=== PATIENT | female | born 1975 | race American Indian/Alaskan Native ===

== ENCOUNTER 2017-09-10 13:14 | Outpatient (CLI) | payer OTHER ==
[2017-09-10 13:45] VITALS: BP 114/68
--- NOTE | 2017-09-10 16:45 | Ultrasound Report ---
FINAL REPORT EXAM: US OB BPP WO NON-STRESS HISTORY: BPP TECHNIQUE: Ultrasound examination of the gravid uterus for biophysical profile evaluation of the fetus PRIORS: None. FINDINGS: There is a single viable intrauterine with documented cardiac activity. The amniotic fluid volume is normal. heart rate: 123 bpm Amniotic fluid: Single pocket with 6.5 cm vertical axis position: Cephalic Evaluation for biophysical profile yields the following score as reported by technologist from real-time exam: respiratory motion (minimum one episode): 2 Gross body movement (minimum 3 movements): 2 tone (minimum one flexion and extension): 2 Amniotic fluid volume (at least 2 cm pocket in vertical diameter): 2 IMPRESSION: Single viable intrauterine with 8/8 biophysical profile score during the sonographic evaluation
--- NOTE | 2017-09-10 16:47 | Ultrasound Report ---
FINAL REPORT EXAM: US OB LIMITED HISTORY: BARBI , reported gestational age 37 weeks 6 days TECHNIQUE: Ultrasound evaluation of the gravid uterus PRIORS: Biophysical profile 09/10/2017 FINDINGS: There is a single viable intrauterine with documented cardiac activity. The quantity of visualized amniotic fluid appears grossly normal. Heart rate: 131 beats per minute position: Cephalic Amniotic fluid index: 20.0cm IMPRESSION: Normal amniotic fluid index at 20.0 cm
== END 2017-09-10 15:40 | disposition home or self-care (01) ==
LOC: TRG 13:14
PROVIDERS: ATTEND Obstetrics & Gynecology
DX: O09.523 Supervision of elderly multigravida, third trimester (principal); O47.1 False labor at or after 37 completed weeks of gestation; Z3A.37 37 weeks gestation of pregnancy
CPT/HCPCS: 59025; 76815; 76819

== ENCOUNTER 2017-09-16 13:50 | Inpatient (IN) | payer OTHER ==
[2017-09-16] MEDS ORDERED: LACTATED RINGERS 1,000 ML ONE (16:48)
[2017-09-16] MEDS ORDERED: BRETHINE IVP PRN (17:15)
[2017-09-16] MEDS ORDERED: POLYCILLIN/NS 2 GM/100 ML 2 GM/100 ML BAG IV ONE (17:15)
[2017-09-16] MEDS ORDERED: ePHEDrine SULFATE IV PRN (17:15)
[2017-09-16] MEDS ORDERED: BRETHINE SUB-Q PRN (17:15)
[2017-09-16] MEDS ORDERED: PHENERGAN PO PRN (17:15)
[2017-09-16] MEDS ORDERED: XYLOCAINE 2% INFILTRATI ONE (17:15)
[2017-09-16] MEDS ORDERED: MINERAL OIL PO PRN (17:15)
[2017-09-16] MEDS ORDERED: STADOL IV PRN (17:15)
--- NOTE | 2017-09-16 17:15 | History and Physical Report ---
History of Present Illness Date of examination: 09/16/17 Date of admission: 09/16/17 16:35 History of present illness: Patient presented to labor and delivery with complaints of regular contractions. Initial exam in triage revealed the patient will 4 cm dilated been admitted for active labor Menstrual History Regularity: regular Menses every: 26-28 days Duration: 3 LMP: 12/19/2016 LMP reliability: month known LMP character: normal test type: urine test BC at conception: none Planned ? no EDC Calculations LMP: 09/25/2017 EDC Confirmation: 09/25/2017 Past History : 5 Term Births: 2 Living Children: 2 Para: 2 Aborta: 2 Elect. Ab: 2 # 1 Delivery type: EAB # 2 Delivery type: EAB # 3 Delivery date: 09/25/2004 Weeks Gestation: 40 labor: no Delivery type: Anesthesia type: epidural [facility] Inf[facility] Sex: Female weight: 6-4 # 4 Delivery date: 08/07/2014 Weeks Gestation: 40 labor: no Delivery type: Delivery location: [place] Sex: Female weight: 7-9 Past Medical History: Negative Past Medical History Past Surgical History: D&C x2 Past Medical History Anesthesia Complications: negative Anemia: negative Autoimmune Disorder: negative Bleeding Disorder: negative Blood Transfusions: negative Breast Disease: negative Diabetes: negative Heart Disease: negative Hypertension: negative Hepatitis/Liver Disease: negative Kidney Disease/UTI: negative Neurologic/Epilepsy/Migraines: negative Phlebitis/Varicosities: negative Psychiatric: negative Pulmonary Disease/Asthma: negative Thyroid Disease: negative Hospitalizations: negative 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 of genital herpes: no Partner hx. of genital herpes: no Varicella/Chicken Pox Status: Immunized TB Risk: no Genetic History ADVANCED MATERNAL AGE Congenital Heart Defect: Mom: no Dad: no Arben Disease: Mom: no Dad: no Thalassemia Mom: no Dad: no Neural Tube Defect Mom: no Dad: no Down's Syndrome Mom: no Dad: no Filipe-Sachs Mom: no Dad: no Sickle Cell Disease/Trait Mom: no Dad: no Hemophilia Mom: no Dad: no Muscular Dystrophy Mom: no Dad: no Cystic Fibrosis Mom: no Dad: no [place] Chorea Mom: no Dad: no Mental Retardation Mom: no Dad: no Fragile X Mom: no Dad: no Other Genetic/Chromosomal Disorder Mom: no Dad: no Child w/other defect Mom: no Dad: no Enviromental Exposures Xray Exposure: no Medication, drug, or alcohol use since LMP: no Chemical/Other Exposure: no Exposure to Cat Liter: no Current Allergies (reviewed today): No known allergies Past History Past Medical History: other (See HPI) Past Surgical History: other (See HPI) 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) Family/Genetic History: other (See HPI) Social history: other (See HPI) - Obstetrical History Expected Date of Delivery: 09/25/17 Actual Gestation: 38 Week(s) 6 Day(s) : 5 Para: 2 Hx # Term Pregnancies: 2 Number of Pregnancies: 0 Spontaneous Abortions: 0 Induced : 2 Number of Living Children: 2 Medications and Allergies Allergies Allergy/AdvReac Type Severity Reaction Status Date / Time No Known Allergies Allergy Unverified 09/10/17 13:51 - Vital Signs Vital signs: Vital Signs Pulse Pulse Ox 84 100 09/16/17 15:08 09/16/17 15:08 Temp Pulse Resp BP Pulse Ox 98.3 F 84 18 126/70 100 09/16/17 15:31 09/16/17 17:10 09/16/17 15:31 09/16/17 16:42 09/16/17 17:10 Results Result Diagrams: 09/16/17 20:00 All other labs normal. Assessment and Plan - Patient Problems (1) Advanced maternal age (AMA), 40 years or greater Current Visit: Yes Status: Acute (2) Active labor at term Current Visit: Yes Status: Acute Plan to address problem: Admit and follow routine labor protocol (3) Group B streptococcal carriage complicating Current Visit: Yes Status: Acute Plan to address problem: Will give prophylactic antibiotics
[2017-09-16] MEDS ORDERED: PITOCin/NS 20 UNIT/1000ML DRIP 20 UNITS/1,000 ML BAG IV SCH (18:00)
[2017-09-16 18:02] LABS: Hematocrit 31.6 % (30.3-42.9); Hemoglobin 10.6 gm/dl (10.1-14.3); Mean Corpuscular HGB Conc 34 % (30-34); Mean Corpuscular Hemoglobin 29 pg (28-32); Mean Corpuscular Volume 87 fl (79-97); Platelet Count 256 K/mm3 (140-440); Red Blood Count 3.64 M/mm3 (3.65-5.03); Red Cell Distribution Width 15.1 % (13.2-15.2)
[2017-09-16] MEDS: LACTATED RINGERS 1,000 ML IV SCH ×2 (18:41→23:30)
[2017-09-16 20:24] LABS: Hematocrit 30.3 % (30.3-42.9); Hemoglobin 9.9 gm/dl (10.1-14.3)
[2017-09-16] MEDS ORDERED: PITOCin/NS 30 UNIT/500ML 30,000 MILLIUNITS/500 ML BAG IV ONE ×2 (23:12→23:31)
--- NOTE | 2017-09-16 23:34 | Event Note ---
Date: 09/16/17 Patient labor progressed slowly cervix now 7 cm. Patient was only 6 cm approximately 3 hours ago at that point had a conversation with start Pitocin patient at that time declined had discussion with the risks of infection especially in the presence of a group B streptococcus patient has agreed to allow me to stop the Pitocin augmented.
--- NOTE | 2017-09-17 01:07 | Procedure Note ---
OB Delivery Note - Delivery Date of Delivery: 09/17/17 Surgeon: BETZY NETTLES Estimated blood loss: 300cc - Vaginal Delivery position: OA Delivery augmentation: rupture of membranes, pitocin Delivery monitor: external FHT, external uterine, internal FHT, internal uterine Route of delivery: Delivery placenta: spontaneous Episiotomy: none Delivery laceration: none Anesthesia: intravenous - A at 1 minute: 8 at 5 minutes: 9
[2017-09-17] MEDS ORDERED: PHENERGAN PO PRN (03:19)
[2017-09-17] MEDS ORDERED: TYLENOL PO PRN (03:19)
[2017-09-17] MEDS ORDERED: SODIUM CHLORIDE FLUSH SYRINGE 10 ML IV NR (03:19)
[2017-09-17] MEDS ORDERED: TUCKS PAD TP PRN (03:19)
[2017-09-17] MEDS ORDERED: NORCO 5/325 PO PRN (03:19)
[2017-09-17] MEDS ORDERED: BENADRYL PO PRN (03:19)
[2017-09-17] MEDS ORDERED: DULCOLAX PR PRN (03:19)
[2017-09-17] MEDS: MOTRIN PO SCH ×4 (04:09→23:22)
--- NOTE | 2017-09-17 08:50 | Event Note ---
Date: 09/17/17 patient resting <8hr post vaginal delivery. no complaints, resting while rests. Lochia scant. Continue pathway.
[2017-09-17] MEDS ORDERED: PRENATAL VITAMIN PO SCH (10:00)
[2017-09-17 14:16] LABS: Hematocrit 29.2 % (30.3-42.9); Hemoglobin 9.6 gm/dl (10.1-14.3)
[2017-09-18] MEDS: MOTRIN PO SCH (05:11)
[2017-09-18] MEDS ORDERED: BOOSTRIX IM ONE (06:00)
--- NOTE | 2017-09-18 09:34 | Progress Note ---
Assessment and Plan - Patient Problems (1) Normal delivery at term Current Visit: Yes Status: Acute Plan to address problem: -ROUTINE PP CARE -D/C HOME TODAY Subjective - Subjective Date of service: 09/18/17 Principal diagnosis: PPD#1 S/P Interval history: DOING WELL. NO C/O THIS AM. Patient reports: appetite normal, voiding normally, pain well controlled [place]: doing well, nursing well Objective - Vital Signs Latest vital signs: Vital Signs Temp Pulse Resp BP 09/18/17 00:50 98.4 F 63 18 126/67 09/17/17 16:50 97.5 F L 84 18 126/67 09/17/17 12:30 98.4 F 71 18 112/66 Intake and Output 09/17/17 09/18/17 09/18/17 22:59 06:59 14:59 Intake Total 920 240 Balance 920 240 Intake: Oral 920 240 Other: Total, Intake Amount 240 240 # Voids Void 1 1 - Exam Breasts: Present: normal Cardiovascular: Present: Normal S1, Normal S2 Lungs: Present: Clear to auscultation, Normal air movement Abdomen: Present: normal appearance, soft, normal bowel sounds. Absent: distention, tenderness, guarding Extremities: Present: normal, edema (1+AT THE ANKLE B/L NO PAIN OR TENDERNESS OF CALFS). Absent: tenderness Deep Tendon Reflex Grade: Normal +2 - Labs Labs: Abnormal lab results 09/17/17 Range/Units 14:00 Hgb 9.6 L (10.1-14.3) gm/dl Hct 29.2 L (30.3-42.9) %
--- NOTE | 2017-09-18 09:36 | Discharge Summary ---
Providers - Providers Date of Admission: 09/16/17 16:35 Date of discharge: 09/18/17 Attending physician: BETZY NETTLES 09/17/17 03:19 Consult to Sheriff [CONS] Routine Reason For Exam: assistance with , SNS Primary care physician: ALEC LU Hospitalization Reason for admission: active labor Delivery: Procedure details: SEE DELIVERY NOTE Episiotomy: other (SEE DELIVERY NOTE) Laceration: other (SEE DELIVERY NOTE) complications: none Discharge diagnosis: IUP at term delivered [place] baby: male Hospital course: PT S/P THAT WAS NOT COMPLICATED. PT HAS HAD ROUTINE PP CARE THAT ALSO HAS NOT BEEN COMPLICATED. PT WILL BE D/C HOME TODAY IF DESIRES TO DO SO. Condition at discharge: Good Disposition: DC-01 TO HOME OR SELFCARE - Discharge Diagnoses (1) Normal delivery at term Status: Acute Plan - Provider Discharge Summary Activity: routine, no sex for 6 weeks, no heavy lifting 4 weeks, no strenuous exercise Diet: routine Instructions: routine Additional instructions: [] Smoking cessation referral if applicable(refer to patient education folder for contact #) [] Refer to [facility] Book[facility] Call your doctor immediately for: * Fever > 100.5 * Heavy vaginal bleeding ( >1 pad per hour) * Severe persistent headache * Shortness of breath * Reddened, hot, painful area to leg or breast * Drainage or odor from incision. * Keep incision clean and dry at all times and follow doctor's instructions regarding bathing/showering - Follow up plan Follow up: ALEC LU MD [Primary Care Provider] - 7 Days
[2017-09-18 10:53] VITALS: BP 128/60
== END 2017-09-18 17:00 | disposition home or self-care (01) | DRG 775 ==
LOC: TRG 13:50 → LD 16:35 → OB 09-17 02:45
PROVIDERS: ADMIT Obstetrics & Gynecology; ATTEND Obstetrics & Gynecology
PROC: 10E0XZZ Delivery of Products of Conception, External Approach (ICD-10-PCS; principal; 2017-09-17)
PROC: 3E0234Z Introduction of Serum, Toxoid and Vaccine into Muscle, Percutaneous Approach (ICD-10-PCS; 2017-09-18)
DX: O99.824 Streptococcus B carrier state complicating childbirth (principal); Z37.0 Single live birth; Z23 Encounter for immunization; Z3A.38 38 weeks gestation of pregnancy
CPT/HCPCS: 36415; 85014; 85018; 85027; 86850; 86900; 86901; 90471; 90715; J0290; J0595; J2590; J7120

== ENCOUNTER 2018-01-17 11:00 | Outpatient (CLI) | payer OTHER | END 2018-01-17 11:01 | disposition home or self-care (01) | LOC: SLR 11:00 | PROVIDERS: ATTEND Specialist | DX: G47.30 Sleep apnea, unspecified (principal) | CPT/HCPCS: G0399 ==

== ENCOUNTER 2018-11-26 23:02 | Emergency (ER) | payer OTHER ==
[2018-11-26 23:58] LABS: Basophils % (Auto) 0.8 % (0.0-1.8); Eosinophils # (Auto) 0.1 K/mm3 (0.0-0.4); Hematocrit 37.7 % (30.3-42.9); Hemoglobin 12.6 gm/dl (10.1-14.3); Lymphocytes # (Auto) 1.9 K/mm3 (1.2-5.4); Lymphocytes % (Auto) 40.3 % (13.4-35.0); Mean Corpuscular HGB Conc 33 % (30-34); Mean Corpuscular Volume 87 fl (79-97); Monocytes # (Auto) 0.4 K/mm3 (0.0-0.8); Platelet Count 303 K/mm3 (140-440); Red Blood Count 4.35 M/mm3 (3.65-5.03); Red Cell Distribution Width 13.6 % (13.2-15.2)
[2018-11-27 00:53] LABS: BUN/Creatinine Ratio 19; Blood Urea Nitrogen 13 mg/dL (7-17); Calcium 9.9 mg/dL (8.4-10.2); Hemolysis Index 12
[2018-11-27] MEDS ORDERED: ASPIRIN PO ONE (02:11)
--- NOTE | 2018-11-27 03:14 | Emergency Department Report ---
ED Chest Pain HPI - General Chief Complaint: Dyspnea/Respdistress Stated Complaint: ANDREEA Time Seen by Provider: 11/27/18 02:08 Source: patient Mode of arrival: Ambulatory Limitations: No Limitations - History of Present Illness Initial Comments: Patient is a 43-year-old emergency room female who presents for central chest pain radiating to left arm with some shortness of breath or today's symptoms are exacerbated by movement and breathing and activity symptoms at rest pain is described as 5/10 sharp achy radiating from substrernal chest to left arm . He states episode of nausea yesterday known nausea and vomiting there is no shortness of breath at this time no cough no fever no wheezing patient denies history of hypertension hyperlipidemia or diabetes states mother from [place] at age 75 MD Complaint: chest pain Onset/Timin -: days(s) Onset: during rest Pain Location: substernal, left chest Pain Radiation: LUE Severity: moderate Severity scale (0 -10): 5 Quality: aching, sharp Consistency: constant Improves With: nothing Worsens With: palpation, movement re: nausea Other Symptoms: cough, fever. denies: syncope, rash, acid taste in mouth, leg swelling, palpitations, burping Treatments Prior to Arrival: none Aspirin use within the Past 7 Days: (0) No - Related Data Previous Rx's Medication Instructions Recorded Last Taken Type Lidocain2.5%/Prilocai2.5% [Emla] 1 applic TP ONCE #1 tube 09/18/17 Unknown Rx Naproxen 500 mg PO BID PRN #30 tablet 11/27/18 Unknown Rx Allergies Allergy/AdvReac Type Severity Reaction Status Date / Time No Known Allergies Allergy Unverified 09/10/17 13:51 Heart Score - HEART Score History: Moderately suspicious EKG: Normal Age: 45-65 Risk factors: No known risk factors Troponin: < normal limit HEART Score: 2 ED Review of Systems ROS: Stated complaint: ANDREEA Other details as noted in HPI Constitutional: denies: chills, fever Eyes: denies: eye pain, eye discharge, vision change ENT: denies: ear pain, throat pain Respiratory: cough Cardiovascular: chest pain. denies: edema, syncope, paroxysmal nocturnal dyspnea Endocrine: no symptoms reported Gastrointestinal: denies: abdominal pain, nausea, vomiting, diarrhea, constipation, hematemesis, melena, hematochezia Genitourinary: denies: urgency, dysuria, discharge Musculoskeletal: denies: back pain, joint swelling, arthralgia Skin: denies: rash, lesions Neurological: numbness (left arm ). denies: headache, weakness, paresthesias Psychiatric: denies: anxiety, depression Hematological/Lymphatic: denies: easy bleeding, easy bruising ED Past Medical Hx - Past Medical History Previous Medical History?: No Hx Hypertension: No Hx Congestive Heart Failure: No Hx Diabetes: No Hx Deep Vein Thrombosis: No Hx Renal Disease: No Hx Sickle Cell Disease: No Hx Seizures: No Hx Asthma: No Hx COPD: No Hx HIV: No - Surgical History Past Surgical History?: No - Social History Smoking Status: Never Smoker Substance Use Type: None - Medications Home Medications: Home Medications Medication Instructions Recorded Confirmed Last Taken Type Lidocain2.5%/Prilocai2.5% [Emla] 1 applic TP ONCE #1 tube 09/18/17 Unknown Rx Naproxen 500 mg PO BID PRN #30 tablet 11/27/18 Unknown Rx ED Physical Exam - General Limitations: No Limitations General appearance: alert, in no apparent distress - Head Head exam: Present: atraumatic, normocephalic - Eye Eye exam: Present: normal appearance, PERRL - ENT ENT exam: Present: mucous membranes moist. Absent: normal orophraynx, TM's normal bilaterally, normal external ear exam - Neck Neck exam: Present: normal inspection, full ROM, lymphadenopathy. Absent: tenderness, meningismus, thyromegaly - Expanded Neck Exam Expanded Neck exam: Absent: tenderness, midline deformity, anterior neck swelling, thyroid mass, carotid bruit, tracheal deviation - Respiratory Respiratory exam: Present: normal lung sounds bilaterally. Absent: respiratory distress, wheezes, stridor, chest wall tenderness - Cardiovascular Cardiovascular Exam: Present: regular rate, normal rhythm, normal heart sounds. Absent: systolic murmur, diastolic murmur, rubs, gallop - GI/Abdominal GI/Abdominal exam: Present: soft, normal bowel sounds. Absent: distended, tenderness, guarding, rebound, bruit, hernia - Rectal Rectal exam: Present: deferred - Extremities Exam Extremities exam: Present: normal inspection, full ROM, normal capillary refill. Absent: tenderness, pedal edema, joint swelling, calf tenderness - Back Exam Back exam: Present: normal inspection, full ROM. Absent: tenderness, CVA tenderness (R), CVA tenderness (L), muscle spasm, paraspinal tenderness, vertebral tenderness, rash noted - Neurological Exam Neurological exam: Present: alert, oriented X3, CN II-XII intact, normal gait, reflexes normal - Psychiatric Psychiatric exam: Present: normal affect, normal mood - Skin Skin exam: Present: warm, dry, intact, normal color. Absent: rash ED Course Vital Signs 11/26/18 23:16 Temperature 98 F Pulse Rate 62 Respiratory 18 Rate Blood Pressure 150/85 O2 Sat by Pulse 100 Oximetry EFRAIN score - Efrain Score Age > 65: (0) No Aspirin use within the Past 7 Days: (0) No 3 or more CAD Risk Factors: (0) No 2 or more Angina events in past 24 hrs: (0) No Known CAD with more than 50% Stenosis: (0) No Elevated Cardiac Markers: (0) No ST Deviation Greater than 0.5mm: (0) No EFRAIN Score: 0 ED Medical Decision Making - Lab Data Result diagrams: 11/26/18 23:51 11/26/18 23:51 Labs 11/26/18 11/26/18 11/27/18 23:51 23:51 02:23 WBC 4.7 RBC 4.35 Hgb 12.6 Hct 37.7 MCV 87 MCH 29 MCHC 33 RDW 13.6 Plt Count 303 Lymph % (Auto) 40.3 H Crenshaw % (Auto) 9.0 H Eos % (Auto) 2.0 Baso % (Auto) 0.8 Lymph # 1.9 Crenshaw # 0.4 Eos # 0.1 Baso # 0.0 Seg Neutrophils % 47.9 Seg Neutrophils # 2.2 PT 13.8 INR 1.00 APTT 30.4 Sodium 140 Potassium 4.2 Chloride 101.2 Carbon Dioxide 28 Anion Gap 15 BUN 13 Creatinine 0.7 Estimated GFR > 60 BUN/Creatinine Ratio 19 Glucose 99 Calcium 9.9 Magnesium Troponin T < 0.010 11/27/18 02:23 WBC RBC Hgb Hct MCV MCH MCHC RDW Plt Count Lymph % (Auto) Crenshaw % (Auto) Eos % (Auto) Baso % (Auto) Lymph # Crenshaw # Eos # Baso # Seg Neutrophils % Seg Neutrophils # PT INR APTT Sodium Potassium Chloride Carbon Dioxide Anion Gap BUN Creatinine Estimated GFR BUN/Creatinine Ratio Glucose Calcium Magnesium 2.10 Troponin T < 0.010 - EKG Data EKG shows normal: sinus rhythm, axis, intervals, QRS complexes, ST-T waves Rate: normal - EKG Data When compared to previous EKG there are: previous EKG unavailable Interpretation: normal EKG, LVH - Radiology Data Radiology results: report reviewed, image reviewed Normal CXR no infiltrates no opacities - Medical Decision Making Tabares score is 1 , EFRAIN score is 0, t troponin troponin less than 0.012 , EKG is normal sinus rhythm improved with , medication plan proceed and naproxen when necessary chest wall pain follow with PCP O2 to 3 days patient is given referral to cardiology for evaluation as requested DC to home with a diagnosis atypical chest pain chest wall pain this pain is reproducible with deep palpation to the left lateral chest wall there is no shortness of breath there is no wheezing O2 sat is 100% on room air PERC PE score is 0 patient verbalized agreement and understanding of the discharge plan follow up with PCP and cardiology as directed Critical care attestation.: If time is entered above; I have spent that time in minutes in the direct care of this critically ill patient, excluding procedure time. ED Disposition Clinical Impression: Atypical chest pain, Chest wall pain Disposition: DC-01 TO HOME OR SELFCARE Is pt being admited?: No Does the pt Need Aspirin: No Condition: Stable Instructions: Chest Pain (ED), Costochondritis (ED) Prescriptions: Naproxen 500 mg PO BID PRN #30 tablet PRN Reason: pain Referrals: [facility] MD HARJIT [Primary Care Provider] - 3-5 Days MERT RICHARDSON MD [Staff Physician] - 3-5 Days Forms: Work/School Release Form(ED) Time of Disposition: 04:30
[2018-11-27 03:34] LABS: Partial Thromboplastin Time 30.4 Sec. (24.2-36.6)
--- NOTE | 2018-11-27 03:53 | XRay Report ---
PROCEDURE: XR CHEST ROUTINE 2V TECHNIQUE: PA and lateral chest radiographs were obtained. HISTORY: chest pain COMPARISONS: None. FINDINGS: Heart: Normal. Mediastinum/Vessels: Normal. Lungs/Pleural space: Normal. Bony thorax: No acute osseous abnormality. IMPRESSION: Normal examination. This document is electronically signed by Dana Amato DO., November 27 2018 03:51:33 AM ET
[2018-11-27 05:34] VITALS: BP 142/76
== END 2018-11-27 05:36 | disposition home or self-care (01) ==
LOC: ED 23:02
DX: R07.89 Other chest pain (principal); R05 Cough; R50.9 Fever, unspecified; R20.0 Anesthesia of skin
CPT/HCPCS: 36415; 71046; 80048; 83735; 84484; 85025; 85610; 85730; 93005; 93010